=== PATIENT | male | born 1985 | race Hispanic/Latino ===

== ENCOUNTER 2018-09-09 08:06 | Emergency (ER) | payer SELFPAY ==
[~2018-09-09] VITALS: Ht 188 cm; Wt 140.0 kg
[~2018-09-09 08:06] MED LIST: BACTRIM DS1 TAB PO; BACTROBAN2 % EX; CEPHALEXIN500 MG OR; LEVAQUIN500 MG PO; LORTAB 5 OR; NO HOME MEDS
[2018-09-09] MEDS ORDERED: KEFLEX250 MG PO (09:40)
[2018-09-09] MEDS ORDERED: ULTRAM50 M1 PO (09:40)
[2018-09-09] MEDS ORDERED: TORADOL PO (09:40)
[2018-09-09 10:03] VITALS: BP 144/79
== END 2018-09-09 10:03 | disposition home or self-care (01) | DRG 605 ==
LOC: ED 08:06
DX: S00.83XA Contusion of other part of head, initial encounter (principal); S30.0XXA Contusion of lower back and pelvis, initial encounter; S20.312A Abrasion of left front wall of thorax, initial encounter; S50.312A Abrasion of left elbow, initial encounter; S80.12XA Contusion of left lower leg, initial encounter; S80.11XA Contusion of right lower leg, initial encounter; V58.5XXA Driver of pick-up truck or van injured in noncollision transport accident in traffic accident, initial encounter